=== PATIENT | female | born 1945 | race Caucasian/White ===

== ENCOUNTER → 2017-12-05 | Outpatient (CLI) | payer OTHER ==
[~2017-12-05] MED LIST: NAPR220; ROSU5
== END ==
LOC: PLD 13:32 → LAB SHORT 13:32
DX: D48.5 Neoplasm of uncertain behavior of skin (principal)
CPT/HCPCS: 88305

== ENCOUNTER → 2019-05-31 | Outpatient (CLI) | payer OTHER | END | disposition home or self-care (01) | LOC: PLD 08:09 → LAB SHORT 08:09 | DX: N95.0 Postmenopausal bleeding (principal) | CPT/HCPCS: 88305 ==

== ENCOUNTER → 2020-07-08 | Outpatient (CLI) | payer OTHER ==
[~2020-07-08] MED LIST changes: +IBUP400; +OMEP20ER; +OMEP20ER PO
== END | disposition home or self-care (01) ==
LOC: LAB 11:03 → LAB SHORT 11:03
DX: D48.5 Neoplasm of uncertain behavior of skin (principal)
CPT/HCPCS: 88305

== ENCOUNTER 2020-11-05 10:56 | Day surgery (SDC) | payer OTHER ==
[~2020-11-05] VITALS: Ht 165.1 cm; Wt 91.9 kg
[~2020-11-05 10:56] MED LIST changes: -IBUP400; -OMEP20ER; -OMEP20ER PO
[2020-11-05] MEDS ORDERED: IBUP400 (11:24)
[2020-11-05] MEDS ORDERED: OMEP20ER PO ×2 (11:27→11:29)
[2020-11-05] MEDS ORDERED: OMEP20ER (11:28)
== END 2020-11-05 13:49 | disposition home or self-care (01) ==
LOC: ORSCSDS 10:56
PROVIDERS: Obstetrics & Gynecology
PROC: 0UDB8ZX Extraction of Endometrium, Via Natural or Artificial Opening Endoscopic, Diagnostic (ICD-10-PCS; principal; 2020-11-05 12:00)
DX: N95.0 Postmenopausal bleeding (principal); N84.0 Polyp of corpus uteri; N85.00 Endometrial hyperplasia, unspecified; R93.89 Abnormal findings on diagnostic imaging of other specified body structures; I10 Essential (primary) hypertension; E78.5 Hyperlipidemia, unspecified; Z79.899 Other long term (current) drug therapy; E66.9 Obesity, unspecified; Z68.33 Body mass index [BMI] 33.0-33.9, adult
CPT/HCPCS: 88305; A9270; J1100; J1885; J2250; J2405; J2704; J3010